=== PATIENT | male | born 1990 | race Caucasian/White ===

== ENCOUNTER 2018-12-08 17:06 | Emergency (ER) | payer BC, OTHER ==
[~2018-12-08] VITALS: Ht 172.7 cm; Wt 81.7 kg
[2018-12-08 18:32] LABS: HEMATOCRIT 44.3 % (42.0-52.0); MCH 28.8 pg (26.0-34.0); MCV 84.7 fL (80.0-100.0); MPV 7.7 fl. (7.2-11.1); NUCLEATED RBCS 0 /100WBC; PLATELET COUNT* 221 thou/uL (150-400); RBC 5.23 mil/uL (4.50-6.00); RDW-CV 12.9 % (10.5-14.5); WBC 14.8 thou/uL (4.0-11.0)
[2018-12-08 18:40] LABS: CALCIUM 9.9 mg/dL (8.5-10.1); CREATININE 1.4 mg/dL (0.6-1.3); POTASSIUM 4.6 mmol/L (3.5-5.1)
[2018-12-08 18:45] LABS: ALBUMIN 4.7 g/dL (3.4-5.0); TOTAL BILIRUBIN 0.9 mg/dL (<0.1-1.0); TOTAL PROTEIN 8.1 g/dL (6.4-8.2)
[2018-12-08 19:36] LABS: ABSOLUTE LYMPHOCYTES 0.7 thou/uL (0.8-5.3); PLATELET ESTIMATE ADEQUATE
[2018-12-08 19:55] VITALS: BP 112/80
== END 2018-12-08 19:55 | disposition home or self-care (01) ==
LOC: M.ERS 17:06
PROVIDERS: Nurse Practitioner Family
DX: E86.0 Dehydration (principal)